=== PATIENT | male | born 1980 | race Hispanic/Latino ===

== ENCOUNTER 2021-10-25 20:37 | Emergency (ER) | payer BC, OTHER ==
[~2021-10-25] VITALS: Ht 152.4 cm; Wt 114.3 kg
[2021-10-25 21:26] LABS: BASOPHILS % (AUTO) 1.2 % (0.0-5.0); EOSINOPHILS % (AUTO) 2.6 % (0.0-8.0); HEMATOCRIT 49.7 % (42-54); LYMPHOCYTES % (AUTO) 19.3 % (21.0-51.0); MEAN CORPUSCULAR HEMOGLOBIN 29.9 pg (27.0-33.0); MEAN CORPUSCULAR HGB CONC 35.2 g/dL (32.0-36.0); MEAN CORPUSCULAR VOLUME 84.8 fL (79-99); NEUTROPHILS % (AUTO) 61.9 % (40.0-77.0); PLATELET COUNT (AUTO) 133 K/uL (130-400); RED BLOOD CELL COUNT(AUTO) 5.86 MIL/uL (4.50-6.20); RED CELL DISTRIBUTION WIDTH 12.2 % (11.0-15.5); WHITE BLOOD COUNT (AUTO) 4.2 K/uL (4.8-10.8)
[2021-10-25] MEDS ORDERED: ACETAMINOPHEN 500 MG TABLET PO ONE (21:30)
[2021-10-25] MEDS ORDERED: CEPHALEXIN 500 MG CAPSULE PO ONE (21:30)
[2021-10-25 21:34] LABS: CREATININE 1.4 mg/dL (0.5-1.5); POTASSIUM 3.2 mmol/L (3.5-5.1)
[2021-10-25 21:39] LABS: ALBUMIN 3.8 g/dL (3.5-5.0); BILIRUBIN,TOTAL 1.2 mg/dL (0.2-1.0); TOTAL PROTEIN, SERUM 8.5 g/dL (6.0-8.3)
[2021-10-25] MEDS ORDERED: POTASSIUM BICARB/CIT AC 25 MEQ TABLET.EFF PO ONE (22:00)
[2021-10-25 22:28] LABS: APPEARANCE,URINE Clear (CLEAR); BILIRUBIN,URINE Negative (NEGATIVE); COLOR,URINE Dark Yellow (YELLOW); GLUCOSE, URINE (UA) Negative (NEGATIVE); KETONES,URINE 15 mg/dL (NEGATIVE); LEUKOCYTE ESTERASE ,URINE Negative (NEGATIVE); NITRATE,URINE Negative (NEGATIVE); OCCULT BLOOD,URINE Small (NEGATIVE); PH,URINE 5.5 (5.0-8.0); PROTEIN,URINE POS 1+ mg/dL (NEGATIVE)
[2021-10-25 22:40] LABS: BACTERIA,URINE Few /HPF (None Seen); RBC,URINE 0-1 /HPF (0-1); SQUAMOUS EPITHELIAL CELL,UR Moderate /HPF (0-2); WBC,URINE 0-1 /HPF (0-1)
[2021-10-25] MEDS ORDERED: CEPH500B PO (22:44)
[2021-10-25] MEDS ORDERED: ACET-2247 PO (22:44)
[2021-10-25 23:02] VITALS: BP 136/87
== END 2021-10-25 23:04 | disposition home or self-care (01) ==
LOC: EDH 20:37
DX: S30.812A Abrasion of penis, initial encounter (principal); B34.9 Viral infection, unspecified; Z20.822 Contact with and (suspected) exposure to COVID-19; E66.9 Obesity, unspecified; Z88.6 Allergy status to analgesic agent; Z68.42 Body mass index [BMI] 45.0-49.9, adult; Z90.49 Acquired absence of other specified parts of digestive tract; X58.XXXA Exposure to other specified factors, initial encounter; Y93.89 Activity, other specified; Y92.89 Other specified places as the place of occurrence of the external cause; Y99.8 Other external cause status
CPT/HCPCS: 36415; 80053; 81001; 85025; 86592; 86694; 86695 ×2; 87486; 87635; 87797; 87804 ×2; 99284; C9803

== ENCOUNTER → 2024-12-11 | Emergency (ER) | payer BC, SELFPAY ==
[~2024-12-11] VITALS: Ht 182.9 cm; Wt 113.4 kg
[~2024-12-11] MED LIST: ACET-2247 PO; CEPH500B PO; MAXIOS OD
[2024-12-11 12:21] VITALS: BP 147/91; PULSE 59; RESP 18; TEMP 98.1; O2SAT 100
--- NOTE | 2024-12-11 12:44 | NUR ---
pt presents reoccuring eye irritation current flare up started 4 days ago no reported apparent cause of irritation pt confirmed no foreign body
--- NOTE | 2024-12-11 13:09 | ERN ---
ED Note History of Present Illness Stated Complaint: EYE PROBLEM Chief Complaint: Eye Problems Time Seen by MD: 13:01 Dictation: PATIENT IS A 44-YEAR-OLD MALE HERE WITH A RIGHT RED EYE THAT IS PAINLESS ONSET THREE DAYS PRIOR TO ARRIVAL. HE DENIES CONTACT LENSES NO RECENT EYE TRAUMA. STATES HE DOES WEAR CORRECTIVE LENSES. NO HEADACHE NO VISUAL ACUITY CHANGES. VISUAL ACUITY TEST WAS PERFORMED Allergies: Coded Allergies: ibuprofen (Unverified Allergy, Unknown, 10/25/21) Home Meds Active Scripts Acetaminophen (Tylenol) 325 Mg Tablet, 650 MG PO Q4HPRN, #50 TAB Prov:LOUISE SANCHEZ 10/25/21 Cephalexin Monohydrate (Keflex) 500 Mg Cap, 500 MG PO TID, #21 CAP Prov:LOUISE SANCHEZ 10/25/21 Past Medical History Past Medical History: Hypothyroid Additional Past Medical Hx: Obesity Surgical History: Appendectomy Family History: Negative Social History: Negative RN Note Reviewed/Agreed w/PFSH: Yes Review of System Dictation CONSTITUTIONAL: NEGATIVE EXCEPT FOR HPI HEAD/FACE: NEGATIVE EXCEPT FOR HPI EENT: NEGATIVE EXCEPT FOR HPI PAINLESS RIGHT RED EYE RESPIRATORY: NEGATIVE EXCEPT FOR HPI GASTROINTESTINAL/ABDOMINAL: NEGATIVE EXCEPT FOR HPI GENITOURINARY: NEGATIVE EXCEPT FOR HPI MUSCULOSKELETAL: NEGATIVE EXCEPT FOR HPI INTEGUMENTARY: NEGATIVE EXCEPT FOR HPI NEUROLOGICAL/PSYCH: NEGATIVE EXCEPT FOR HPI HEMATOLOGIC/LYMPHATIC: NEGATIVE EXCEPT FOR HPI ALL SYSTEMS NEGATIVE, EXCEPT NOTED ABOVE. 13 POINT REVIEW OF SYSTEMS ASSESSED AND ALL NEGATIVE EXCEPT FOR ABOVE. Initial Vital Sign VS Vital Signs Date Time Temp Pulse Resp B/P (MAP) Pulse Ox O2 Delivery O2 Flow Rate FiO2 12/11/24 12:18 98.1 59 18 147/91 100 Room Air 0 12/11/24 12:21 21 Physical Exam Dictation VITAL SIGNS REVIEWED GENERAL APPEARANCE: ALERT, ORIENTED X 3, NO ACUTE DISTRESS, WELL DEVELOPED, NOURISHED. HEAD AND FACE: NON-TRAUMATIC. EYES: PERRL, INJECTED CONJUNCTIVAS, EYELID NO TRAUMA, ANTERIOR CHAMBER WITH ARCUS SENILIS. EOMS INTACT, NO VISUAL FIELD CUTS EARS: PINNAS INTACT AND NO SIGNS OF TRAUMA OR ERYTHEMA EAR CANALS CLEAR AND NO DISCHARGE TM NO ERYTHEMA NOSE: NO DISCHARGE, NO BLEEDING. OROPHARYNX: MOUTH NORMAL, TONGUE PINK, PHARYNX CLEAR,NO ERYTHEMA, TONSILS NO EXUDATES, NO ABSCESSES NOTED, MUCOUS MEMBRANE MOIST NECK: SUPPLE, NON-TENDER, NO THYROMEGALY, NO MASSES, NO JVD, NO BRUITS BREAST:DEFERRED CHEST:NO TENDERNESS, NO CREPITUS, NO PARADOXICAL MOVEMENT, NO RETRACTIONS LUNGS:CLEAR, WELL-VENTILATED, SYMMETRIC, NO RALES, NO WHEEZING, NO RHONCHI, NO STRIDOR, GOOD BREATH SOUNDS BILATERALLY HEART: REGULAR RATE, REGULAR RHYTHM, NO MURMUR, NO GALLOPS VASCULAR: NO PERIPHERAL EDEMA, ABDOMEN: SOFT, POSITIVE BOWEL SOUNDS, NONDISTENDED, NO GUARDING, NONTENDER, NO REBOUND, NO MASSES NO HEPATOMEGALY, NO SPLENOMEGALY, NO JACOBS'S SIGN, NO HERNIAS. RECTAL: DEFERRED GENITAL: DEFERRED NEUROLOGICAL: NORMAL SPEECH, MOTOR FUNCTION INTACT, SENSORY FUNCTION INTACT MUSCULOSKELETAL: NECK NONTENDER, FULL RANGE OF MOTION, BACK NONTENDER, FULL RANGE OF MOTION, EXTREMITIES: NONTENDER, FULL RANGE OF MOTION SKIN: COLOR PINK, DRY, NO TURGOR, NO RASH, NO LACERATIONS, NO ABRASIONS, NO CONTUSIONS. LYMPHATIC: DEFERRED Results (Laboratory/Radiology) Labs Reviewed?: Yes ED Course ED Course Orders Procedure Category Date Status Time Tetracaine Hcl PHA 12/11/24 Complete (Pontocaine 0.5% 13:03 Fluorescein Sodium PHA 12/11/24 Complete (Agmnq-N-Auogi At) 13:30 Ibuprofen 800 Mg Tab PHA 12/11/24 Complete (Motrin) 13:30 Visual Acuity Test CPOE 12/11/24 Transmitted (Er) 13:03 Acetaminophen 500mg PHA 12/11/24 In Process Tab (Tylenol 500mg T 13:30 Acetaminophen 500mg PHA 12/11/24 Complete Tab (Tylenol 500mg T 13:30 Current Medications Medications (Trade) Dose Ordered Sig/Candelario Route PRN Reason Start Time Stop Time Status Last Admin Dose Admin Acetaminophen (TYLenol 500MG TAB) 1,000 mg ONCE ONCE PO 12/11/24 13:30 12/11/24 13:15 DC Acetaminophen (TYLenol 500MG TAB) 1,000 mg ONCE ONCE PO 12/11/24 13:30 12/11/24 13:31 Fluorescein Sodium (Oqatt-M-Rheoj At) 1 strip ONCE OP 12/11/24 13:30 12/11/24 13:15 DC 12/11/24 13:12 Ibuprofen (moTRIN) 800 mg ONCE ONCE PO 12/11/24 13:30 12/11/24 13:11 DC Tetracaine HCl (Pontocaine 0.5% Ophth Soln) 2 drop ONCE OP 12/11/24 13:03 12/11/24 13:15 DC 12/11/24 13:12 Vital Signs Date Time Temp Pulse Resp B/P (MAP) Pulse Ox O2 Delivery O2 Flow Rate FiO2 12/11/24 12:21 98.1 59 18 147/91 100 Room Air* 0 21 12/11/24 12:18 98.1 59 18 147/91 100 Room Air 0 1310/VISUAL ACUITY TEST RIGHT EYE 20/30 LEFT EYE 20/20 BOTH EYES 20/20 CORRECTED 1316/PATIENT WAS STRONGLY ADVISED TO FOLLOW UP WITH [facility] ON FRIDAY FOR AN APPOINTMENT. HE WILL BE PRESCRIBED ANTIBIOTIC DROPS Medical Decision Making MDM MEDICAL DISCHARGE MAKING BASED ON VISUAL ACUITY TEST CORRECTED PAIN MANAGEMENT EYE EXAMINATION WITH STAINING, TETRACAINE AND WOOD'S LAMP PATIENT WILL BE DISCHARGED HOME WITH MAXITROL DOSING FOUR TO 5 TIMES A DAY REFERRED TO [facility] FRIDAY Procedure Procedure Dictation: 1315/PROCEDURE EXPLAINED PATIENT HE AGREED TO PROCEED TWO DROPS TETRACAINE RIGHT EYE FLUORESCEIN WAS OBTAINED I WAS EXAMINED USING WOOD'S LAMP UPPER LID WAS EVERTED NO FOREIGN BODIES, NO CORNEAL ABRASIONS LACERATIONS OR ULCERATIONS. PATIENT TOLERATED WELL DX & DISP Disposition: Discharge Departure Impression: Primary Impression: Allergic conjunctivitis of right eye Condition: Stable Scripts Rohit/Polymyx B Sulf/Dexameth (Maxitrol Ophth Susp) 3.5 Mg/Ml-10,000 Unit/Ml-0.1 % Opsus 1 DROP OD 5X/DAY for 7 Days, #5 ML SHAKE WELL, APPLY TWO DROPS TO RIGHT EYE 5 TIMES A DAY FOR THE NEXT SEVEN DAYS. Prov: MARIELOS AGUAYO DIRECTOR OF SOLUTIONS ARCHITECTURE 12/11/24 Additional Instructions: FOLLOW-UP WITH PRIMARY CARE PROVIDER IN 1 TO 2 DAYS. TAKE MEDICATIONS DIRECTED HERE IN THE EMERGENCY ROOM. OKAY TO CONTINUE HOME MEDICATIONS UNLESS OTHERWISE DISCUSSED DURING YOUR VISIT IN THE EMERGENCY ROOM TODAY. RETURN TO YOUR NEAREST EMERGENCY ROOM IF SYMPTOMS WORSEN OR IF THERE IS NO IMPROVEMENT. CALL 911 IF YOU NEED IMMEDIATE ASSISTANCE. TAKE TYLENOL OR MOTRIN [id number] NEEDED AND IF NO CONTRAINDICATIONS ARE PRESENT. INCREASE ORAL HYDRATION. A WOUND CULTURE OR URINE CULTURE WAS ORDERED HERE IN THE EMERGENCY ROOM DEPARTMENT PLEASE FOLLOW-UP WITH PRIMARY CARE PROVIDER AND ADVISE THEM TO GET REPEAT PORTS FROM OUR FACILITY. IF YOU HAD ANY LEIDY WRAP/SPLINTS JOSETTE T WERE APPLIED HERE, PLEASE DO NOT REMOVE THEM UNTIL YOU SEE YOUR PRIMARY CARE OR SPECIALTY. USE EYEDROPS DIRECTED, SHAKE WELL BEFORE APPLYING. TYLENOL [id number] NEEDED FOR PAIN. FOLLOW UP WITH [facility] ON FRIDAY, CALL FOR AN APPOINTMENT Referrals: LARRY ALFORD MD (PCP) Time of Disposition: 13:23 I have reviewed the case, and I agree with, Diagnosis and Plan MARIELOS AGUAYO NP Dec 11, 2024 13:09
[2024-12-11] MEDS: TETRACAINE HCL 0.5% 4 ML OPHTH SOLN OP SCH (13:12)
[2024-12-11] MEDS: FLUORESCEIN SODIUM 1 STRIP STRIP OP SCH (13:12)
--- NOTE | 2024-12-11 13:35 | NUR ---
UNABLE TO DEPART DUE TO REGISTRATION PROCESS
== END ==
LOC: EDH 12:15
DX: H10.31 Unspecified acute conjunctivitis, right eye (principal); E03.9 Hypothyroidism, unspecified; E66.9 Obesity, unspecified; Z88.6 Allergy status to analgesic agent; Z90.49 Acquired absence of other specified parts of digestive tract
CPT/HCPCS: 99283